=== PATIENT | female | born 1925 | race Caucasian/White ===

== ENCOUNTER 2017-02-21 08:50 | Emergency (ER) | payer MEDICARE ==
[~2017-02-21 08:50] MED LIST: ALPR-475 PO; ALPR1TAB10 PO; AMOX1TAB64 PO; ASPI81TA50 PO; BETA1TAB10; CEFD300C37 PO; CIPR500T3 PO; DOCU-30 PO; FAMC500T33 PO; GABA100C8 PO; GABA300C10 PO; HYDR-3240 PO; LEVO25TA4 PO; LOSA100T2 PO; LOSA1TAB17 PO; LOSA1TAB18 PO; LOSA50TA6 PO; METH1TAB21 PO; METO25TA35 PO; METR500T PO; OXYC5TAB3 PO; PANT40TA3 PO; PARO10TA24 PO; POLY17PO5 PO; POTA20TA14 PO; ROSU5TAB PO; [UNRECOGNIZED DRUG - REMARK]
[2017-02-21 10:33] LABS: ASPARTATE AMINO TRANSFERASE 15 U/L (15-37); BLOOD UREA NITROGEN 6 mg/dL (7-18)
[2017-02-21 12:31] VITALS: BP 140/68
== END 2017-02-21 12:39 | disposition home or self-care (01) ==
LOC: ED 10:19
DX: N30.01 Acute cystitis with hematuria (principal); I10 Essential (primary) hypertension; K21.9 Gastro-esophageal reflux disease without esophagitis; E78.00 Pure hypercholesterolemia, unspecified; Z90.710 Acquired absence of both cervix and uterus
CPT/HCPCS: 36415; 74176; 80053; 81001; 85025; 87077; 87086; 87186; 99285

== ENCOUNTER 2017-03-15 09:38 | Emergency (ER) | payer MEDICARE ==
[~2017-03-15] VITALS: Ht 152.4 cm; Wt 70.5 kg
[2017-03-15 09:39] VITALS: BP 152/83
[2017-03-15 10:25] LABS: BLOOD UREA NITROGEN 7 mg/dL (7-18)
[2017-03-15] MEDS ORDERED: SODIUM CHLORIDE 0.9% 1,000ML IVBOLUS ONE (10:30)
[2017-03-15] MEDS ORDERED: ACETAMINOPHEN 325 MG TABLET PO ONE (10:30)
[2017-03-15] MEDS ORDERED: SODIUM CHLORIDE FLUSH 10ML SYR IVF ONE (10:30)
[2017-03-15 11:04] LABS: PATH.CAST-FLAG NOT PRESENT; SPERM-FLAG NOT PRESENT; SRC-FLAG NOT PRESENT; XTAL-FLAG NOT PRESENT; YLC-FLAG NOT PRESENT
[2017-03-15] MEDS ORDERED: ACETAMINOPHEN 325 MG TABLET ONE (11:11)
[2017-03-15] MEDS ORDERED: CEFTRIAXONE PMX 1GM/50ML 50 ML IV ONE (11:30)
[2017-03-15] MEDS ORDERED: CEFAZOLIN PMX 1GM/50ML 0 ML ONE (11:38)
[2017-03-15] MEDS ORDERED: CEFTRIAXONE PMX 1GM/50ML 50 ML ONE (11:41)
== END 2017-03-15 13:41 | disposition home or self-care (01) ==
LOC: ED 11:41
DX: N30.00 Acute cystitis without hematuria (principal); R05 Cough; R09.81 Nasal congestion
CPT/HCPCS: 36415; 71010; 80048; 81001; 82040; 85025; 87086; 96365; 99285; J0696; J7030

== ENCOUNTER 2017-06-30 07:33 | Inpatient (IN) | payer MEDICARE ==
[~2017-06-30] VITALS: Ht 152.4 cm; Wt 65.4 kg
[~2017-06-30 07:33] MED LIST changes: +DOCU-131 PO; -DOCU-30 PO; +GABA-826 PO; -GABA100C8 PO; -PARO10TA24 PO; +PARO10TA56 PO
[2017-06-30] MEDS ORDERED: ONDANSETRON 2MG/ML, 2ML IVPush ONE (08:00)
[2017-06-30] MEDS ORDERED: SODIUM CHLORIDE FLUSH 10ML SYR IVF ONE (08:00)
[2017-06-30 08:19] LABS: HEMATOCRIT 38.3 % (34.6-47.8); HEMOGLOBIN 12.9 g/dL (11.7-16.4); WHITE BLOOD COUNT 8.3 x10^3/uL (3.4-10)
[2017-06-30 08:28] LABS: ASPARTATE AMINO TRANSFERASE 15 U/L (15-37); BLOOD UREA NITROGEN 7 mg/dL (7-18)
[2017-06-30] MEDS ORDERED: ONDANSETRON 2MG/ML, 2ML ONE (08:33)
[2017-06-30 08:52] LABS: IS PT STATUS REG ER OR PRE ER? YES
[2017-06-30 09:10] LABS: PATH.CAST-FLAG NOT PRESENT; SPERM-FLAG NOT PRESENT; XTAL-FLAG NOT PRESENT; YLC-FLAG NOT PRESENT
[2017-06-30] MEDS ORDERED: OMNIPAQUE 350 MG/ML, 100ML BOTTLE ONE (09:26)
[2017-06-30 09:54] LABS: SRC-FLAG NOT PRESENT
[2017-06-30] MEDS ORDERED: METRONIDAZOLE PMX 500MG/100ML 100 ML IVPB ONE (10:30)
[2017-06-30] MEDS ORDERED: CIPROFLOXACIN/PMX 400MG/200ML 200 ML IV ONE (10:30)
[2017-06-30] MEDS ORDERED: SODIUM CHLORIDE 0.9% 1,000ML IVBOLUS ONE (10:30)
[2017-06-30] MEDS ORDERED: METRONIDAZOLE PMX 500MG/100ML 100 ML ONE (10:51)
[2017-06-30] MEDS ORDERED: SODIUM CHLORIDE 0.9% 1,000 ML IV ONE (11:03)
[2017-06-30] MEDS ORDERED: CIPROFLOXACIN/PMX 400MG/200ML 200 ML ONE (11:14)
[2017-06-30] MEDS ORDERED: SODIUM CHLORIDE FLUSH 10ML SYR IVF PRN (11:30)
[2017-06-30 13:18] VITALS: BP 123/62
[2017-06-30] MEDS ORDERED: POLYETHYLENE GLYCOL 17 GM PACKET PO PRN (13:30)
[2017-06-30] MEDS ORDERED: HYDROcodone/APAP 5/325 TABLET PO PRN (13:30)
[2017-06-30] MEDS ORDERED: ONDANSETRON ODT 4 MG PO PRN (13:30)
[2017-06-30] MEDS ORDERED: ONDANSETRON 2MG/ML, 2ML IVPush PRN (13:30)
[2017-06-30] MEDS ORDERED: morphine SULFATE 10 MG/ML, 1ML IVPush PRN (13:30)
[2017-06-30] MEDS ORDERED: LABETALOL 5MG/ML, 20ML IVPush PRN (13:30)
[2017-06-30] MEDS: METRONIDAZOLE PMX 500MG/100ML 100 ML IV SCH ×2 (17:28→22:07)
[2017-06-30] MEDS: POTASSIUM CHLORIDE 10 MEQ in D5%-0.9% NACL 1,000 ML IV SCH (17:28)
[2017-06-30 18:51] VITALS: BP 112/55
[2017-06-30] MEDS: GABAPENTIN 100 MG CAPSULE PO SCH ×2 (20:50→23:13)
[2017-06-30] MEDS: PANTOPROZOLE 40MG TABLET PO SCH (20:50)
[2017-06-30] MEDS: ENOXAPARIN 30 MG/0.3 ML SQ SCH (20:50)
[2017-06-30] MEDS: CEFTRIAXONE PMX 1GM/50ML 50 ML IV SCH (20:50)
[2017-07-01] MEDS: POTASSIUM CHLORIDE 10 MEQ in D5%-0.9% NACL 1,000 ML IV SCH (03:13)
[2017-07-01 03:29] VITALS: BP 100/52
[2017-07-01] MEDS: METRONIDAZOLE PMX 500MG/100ML 100 ML IV SCH ×3 (05:03→21:32)
[2017-07-01 05:33] LABS: HEMATOCRIT 31.2 % (34.6-47.8); HEMOGLOBIN 10.6 g/dL (11.7-16.4); WHITE BLOOD COUNT 4.7 x10^3/uL (3.4-10)
[2017-07-01 05:42] LABS: BLOOD UREA NITROGEN 7 mg/dL (7-18)
[2017-07-01 05:46] LABS: ASPARTATE AMINO TRANSFERASE 11 U/L (15-37)
[2017-07-01 07:49] VITALS: BP_SYST 121; BP_SYST 92; BP_DIAS 47; BP_DIAS 79
[2017-07-01] MEDS ORDERED: PANTOPROZOLE 40MG TABLET PO SCH (09:00)
[2017-07-01 09:16] VITALS: BP 109/58
[2017-07-01] MEDS: METOPROLOL TARTRATE 25 MG TABLET PO SCH (09:19)
[2017-07-01] MEDS: PANTOPROZOLE 40MG TABLET PO SCH ×2 (09:19→20:09)
[2017-07-01] MEDS: SENNA/DOCUSATE TABLET PO SCH ×2 (09:20→09:30)
[2017-07-01] MEDS ORDERED: MAALOX/HYOSCYAMINE/LIDOCAINE 45 ML BTL PO PRN (09:30)
[2017-07-01] MEDS: SODIUM CHLORIDE 0.9% 1,000 ML IV SCH (11:16)
[2017-07-01 13:28] VITALS: BP 123/57
[2017-07-01] MEDS: CEFTRIAXONE PMX 1GM/50ML 50 ML IV SCH (19:44)
[2017-07-01] MEDS: ENOXAPARIN 30 MG/0.3 ML SQ SCH (20:09)
[2017-07-01 20:43] VITALS: BP 133/72
[2017-07-01] MEDS: GABAPENTIN 100 MG CAPSULE PO SCH (23:03)
[2017-07-02 02:51] VITALS: BP 111/66
[2017-07-02] MEDS: SODIUM CHLORIDE 0.9% 1,000 ML IV SCH (02:51)
[2017-07-02] MEDS: METRONIDAZOLE PMX 500MG/100ML 100 ML IV SCH (04:51)
[2017-07-02 05:22] LABS: HEMATOCRIT 32.3 % (34.6-47.8); HEMOGLOBIN 10.8 g/dL (11.7-16.4); WHITE BLOOD COUNT 3.7 x10^3/uL (3.4-10)
[2017-07-02 05:32] LABS: BLOOD UREA NITROGEN 5 mg/dL (7-18)
[2017-07-02 05:36] LABS: ASPARTATE AMINO TRANSFERASE 15 U/L (15-37)
[2017-07-02] MEDS ORDERED: CIPR500T87 PO (07:03)
[2017-07-02] MEDS ORDERED: METR500T PO (07:03)
[2017-07-02] MEDS ORDERED: CEFTRIAXONE PMX 1GM/50ML 50 ML IV ONE (07:30)
[2017-07-02 07:46] VITALS: BP 145/80
[2017-07-02] MEDS: PANTOPROZOLE 40MG TABLET PO SCH (09:17)
[2017-07-02] MEDS: SENNA/DOCUSATE TABLET PO SCH (09:17)
[2017-07-02] MEDS: METOPROLOL TARTRATE 25 MG TABLET PO SCH (09:18)
[2017-07-02 10:51] VITALS: BP 150/79
== END 2017-07-02 11:25 | disposition home health service (06) | DRG 392 ==
LOC: ED 09:31 → EDIP 11:03 → 4NOR 13:12 → DCLOUNGE 07-02 11:05
PROVIDERS: ADMIT Internal Medicine; ATTEND Internal Medicine
DX: K57.32 Diverticulitis of large intestine without perforation or abscess without bleeding (principal); E44.1 Mild protein-calorie malnutrition; I10 Essential (primary) hypertension; B19.20 Unspecified viral hepatitis C without hepatic coma; E03.9 Hypothyroidism, unspecified; E78.00 Pure hypercholesterolemia, unspecified; K21.0 Gastro-esophageal reflux disease with esophagitis; F41.9 Anxiety disorder, unspecified; K80.20 Calculus of gallbladder without cholecystitis without obstruction; R73.9 Hyperglycemia, unspecified; K29.80 Duodenitis without bleeding; Z87.440 Personal history of urinary (tract) infections; Z90.49 Acquired absence of other specified parts of digestive tract; Z90.710 Acquired absence of both cervix and uterus; Z68.28 Body mass index [BMI] 28.0-28.9, adult
CPT/HCPCS: 36415; 71010; 74177; 80053; 81001; 83605; 83690; 83735; 84145; 84439; 84484; 85025; 85610; 85730; 87040; 93005; J0696; J0744; J1650; J2405; J3480; J7042; Q9967; J7030

== ENCOUNTER 2017-10-01 01:06 | Emergency (ER) | payer MEDICARE ==
[~2017-10-01] VITALS: Ht 152.4 cm; Wt 70.0 kg
[~2017-10-01 01:06] MED LIST changes: +CIPR500T87 PO; -LOSA1TAB17 PO; -LOSA1TAB18 PO; +LOSA1TAB22 PO; +LOSA1TAB25 PO
[2017-10-01 02:05] LABS: HEMATOCRIT 36.1 % (34.6-47.8); HEMOGLOBIN 12.3 g/dL (11.7-16.4); WHITE BLOOD COUNT 4.4 x10^3/uL (3.4-10)
[2017-10-01 02:13] LABS: ASPARTATE AMINO TRANSFERASE 14 U/L (15-37); BLOOD UREA NITROGEN 12 mg/dL (7-18)
[2017-10-01 02:54] LABS: IS PT STATUS REG ER OR PRE ER? YES
[2017-10-01 03:45] VITALS: BP 152/61
== END 2017-10-01 03:46 | disposition home or self-care (01) ==
LOC: ED 01:32
DX: F41.1 Generalized anxiety disorder (principal); E78.00 Pure hypercholesterolemia, unspecified; K21.9 Gastro-esophageal reflux disease without esophagitis; Z90.49 Acquired absence of other specified parts of digestive tract
CPT/HCPCS: 36415; 71010; 80053; 84484; 85025; 93005; 99285

== ENCOUNTER 2017-10-04 16:36 | Emergency (ER) | payer MEDICARE ==
[~2017-10-04] VITALS: Ht 165.1 cm; Wt 70.5 kg
[2017-10-04] MEDS ORDERED: ASCO1500 PO (18:46)
[2017-10-04] MEDS ORDERED: CHOL100011 PO (18:46)
[2017-10-04 18:48] VITALS: BP 125/54
== END 2017-10-04 19:57 | disposition home or self-care (01) ==
LOC: ED 19:38
DX: S80.01XA Contusion of right knee, initial encounter (principal); S70.01XA Contusion of right hip, initial encounter; S30.0XXA Contusion of lower back and pelvis, initial encounter; E78.00 Pure hypercholesterolemia, unspecified; K21.9 Gastro-esophageal reflux disease without esophagitis; I95.9 Hypotension, unspecified; I10 Essential (primary) hypertension; W01.0XXA Fall on same level from slipping, tripping and stumbling without subsequent striking against object, initial encounter; Y93.89 Activity, other specified; Y92.009 Unspecified place in unspecified non-institutional (private) residence as the place of occurrence of the external cause; Y99.8 Other external cause status
CPT/HCPCS: 72110; 99284

== ENCOUNTER 2017-10-13 08:51 | Emergency (ER) | payer MEDICARE ==
[~2017-10-13] VITALS: Ht 154.9 cm; Wt 61.3 kg
[~2017-10-13 08:51] MED LIST changes: +ASCO1500 PO; +CHOL100011 PO
[2017-10-13 11:40] LABS: CULTURE INDICATED? YES; MICROSCOPIC INDICATED
[2017-10-13] MEDS ORDERED: CEFTRIAXONE 1,000 MG IM ONE (12:00)
[2017-10-13] MEDS ORDERED: CEFTRIAXONE 1,000 MG ONE (12:00)
[2017-10-13] MEDS ORDERED: LIDOCAINE 1%, 10ML ONE (12:00)
[2017-10-13 12:40] VITALS: BP 136/56
== END 2017-10-13 12:42 | disposition home or self-care (01) ==
LOC: ED 10:35
DX: N30.91 Cystitis, unspecified with hematuria (principal); I10 Essential (primary) hypertension
CPT/HCPCS: 81001; 87077; 87086; 87186; 96372; 99284; J0696